=== PATIENT | female | born 1960 | race American Indian/Alaskan Native ===

== ENCOUNTER 2018-06-01 16:39 | Emergency (ER) | payer OTHER ==
[2018-06-01 16:50] VITALS: BP 135/85
[2018-06-01] MEDS ORDERED: MOTRIN PO ONE (18:04)
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
--- NOTE | 2018-06-01 20:00 | XRay Report ---
FINAL REPORT EXAM: XR HAND 3+V LT HISTORY: hand pain TECHNIQUE: 3 views of left hand. PRIORS: None. FINDINGS: No apparent fracture or dislocation. Joint spaces maintained. Soft tissues grossly unremarkable. IMPRESSION: 1. No acute osseous abnormality.
--- NOTE | 2018-06-01 20:02 | XRay Report ---
FINAL REPORT EXAM: XR SPINE CERVICAL 2-3V HISTORY: cervical spine pain TECHNIQUE: AP, lateral, swimmer's and odontoid views of cervical spine. PRIORS: None. FINDINGS: Mild reversal of normal cervical lordosis may be positional versus soft tissue spasm. No loss of height or gross malalignment of cervical vertebral bodies. No obvious osseous destruction. Moderate disc space narrowing, endplate sclerosis and spurring in the C4-7 levels. Prevertebral soft tissues grossly unremarkable. IMPRESSION: 1. No acute osseous abnormality. 2. Degenerative changes.
== END 2018-06-01 20:20 | disposition home or self-care (01) ==
LOC: ED 16:39
DX: S13.4XXA Sprain of ligaments of cervical spine, initial encounter (principal); S66.912A Strain of unspecified muscle, fascia and tendon at wrist and hand level, left hand, initial encounter; Z86.718 Personal history of other venous thrombosis and embolism; Z90.710 Acquired absence of both cervix and uterus; Z79.899 Other long term (current) drug therapy; V89.2XXA Person injured in unspecified motor-vehicle accident, traffic, initial encounter; Y93.89 Activity, other specified; Y99.8 Other external cause status; Y92.410 Unspecified street and highway as the place of occurrence of the external cause
CPT/HCPCS: 72040; 99283